=== PATIENT | female | born 1945 | race Caucasian/White ===

== ENCOUNTER → 2016-07-07 | Outpatient (CLI) | payer MEDICARE ==
[~2016-07-07] MED LIST: ALLEGRA ALLERGY60 MG PO; CALTRATE-600 W600 MG PO; CENTRUM SILVER1 CTB PO; OMEGA-31 SGL PO; PRINZIDE 12.5 M1 TAB PO; SINGULAIR 110 MG/TAB PO; TIROSINT112 MC1 PO; TYLENOL 500MG500 MG PO
== END ==
LOC: COL.RAD 09:22
DX: N13.0 Hydronephrosis with ureteropelvic junction obstruction (principal); N20.0 Calculus of kidney; D49.0 Neoplasm of unspecified behavior of digestive system; E27.8 Other specified disorders of adrenal gland
CPT/HCPCS: Q9967

== ENCOUNTER 2016-08-11 08:50 | Day surgery (SDC) | payer MEDICARE ==
[~2016-08-11] VITALS: Ht 170.2 cm; Wt 86.2 kg
[2016-08-11] MEDS ORDERED: PRINZIDE 12.5 M1 TAB PO (10:00)
[2016-08-11] MEDS ORDERED: TIROSINT112 MC1 PO (10:03)
[2016-08-11] MEDS ORDERED: ALLEGRA ALLERGY60 MG PO (10:04)
[2016-08-11] MEDS ORDERED: SINGULAIR 110 MG/TAB PO (10:06)
[2016-08-11] MEDS ORDERED: OMEGA-31 SGL PO (10:08)
[2016-08-11] MEDS ORDERED: CALTRATE-600 W600 MG PO (10:08)
[2016-08-11] MEDS ORDERED: CENTRUM SILVER1 CTB PO (10:09)
[2016-08-11] MEDS ORDERED: TYLENOL 500MG500 MG PO (10:10)
[2016-08-11 10:54] VITALS: BP 128/64; PULSE 77; TEMP 97.1
[2016-08-11 11:28] VITALS: BP 124/50; PULSE 84; TEMP 97.1
[2016-08-11 11:45] VITALS: BP 117/57; PULSE 77
[2016-08-11 12:00] VITALS: BP 124/53; PULSE 78
[2016-08-11 12:15] VITALS: BP 125/62; PULSE 75
[2016-08-11 12:30] VITALS: BP 121/53; PULSE 69
== END 2016-08-11 12:50 | disposition home or self-care (01) ==
LOC: SDCO 08:50
DX: C25.9 Malignant neoplasm of pancreas, unspecified (principal); E03.9 Hypothyroidism, unspecified; I10 Essential (primary) hypertension; Z79.899 Other long term (current) drug therapy
CPT/HCPCS: C1788; J0690; J1644; J2704; J3010; J7120

== ENCOUNTER → 2017-09-27 | Outpatient (CLI) | payer MEDICARE ==
[~2017-09-27] VITALS: Ht 170.2 cm; Wt 78.2 kg
[2017-09-27] VITALS (14 sets, daily range): BP systolic 151–179; BP diastolic 68–88; PULSE 66–74
[~2017-09-27] MED LIST changes: +CREON 120000 U-1 ECC PO; +K-DUR 10 MEQ T10 MEQ PO; +MUCINEX 60600 MG/TA1 PO; +MULTI VITAMINS1 TAB PO; +NEURONTIN300 MG/CAP PO
== END ==
LOC: COL.RAD 10:54
DX: C25.2 Malignant neoplasm of tail of pancreas (principal); C78.01 Secondary malignant neoplasm of right lung
CPT/HCPCS: 18871